=== PATIENT | male | born 1965 | race Caucasian/White ===

== ENCOUNTER 2021-10-18 07:01 | Outpatient (CLI) | payer SELFPAY ==
--- NOTE | 2021-10-18 07:14 | CT_ITS ---
HISTORY: LEFT FLANK PAIN X 4 WEEKS TECHNIQUE: Helically acquired images were obtained of the abdomen and pelvis following the intravenous administration of 100mL Isovue-370 Iodinated contrast. Redicat Oral contrast was administered. Coronal and sagittal reformats obtained. A radiation dose optimization technique was used for this scan. COMPARISON: None FINDINGS: # of images incl. paperwork: [id number] LUNG BASES: Unremarkable. LIVER T BILIARY TRACT: Unremarkable gallbladder. No acute hepatic finding. ADRENAL GLANDS: Unremarkable. SPLEEN: Unremarkable. PANCREAS: Unremarkable. KIDNEYS/URETERS/BLADDER: No hydronephrosis or perinephric inflammation. Unremarkable ureters and bladder. LYMPH NODES: No suspicious adenopathy. STOMACH, SMALL AND LARGE BOWEL: Minimal hiatal hernia. No acute gastric finding. No small bowel obstruction or gross wall thickening. Normal appendix. No acute colonic finding. ASCITES/FREE AIR: No free fluid or free air. AORTA: Unremarkable. PELVIS: Unremarkable. MUSCULOSKELETAL: No acute osseous finding. Left inguinal fat-containing hernia without inflammation. L5-S1 disc height loss with small ex vacuo air-containing posterior protrusion of the curvature of the lower lumbar spine. Right pelvic bone island. CT/Abdomen/Pelvis WITH Contrast IMPRESSION: No specific finding to explain flank pain. Moderate to large colonic stool burden. Small hiatal hernia. Individualized dose optimization techniques were used for this CT. at 0750 Reported and signed by: Anaotly Jain MD Electronically Signed: Anatoly Jain MD at 7:48 EST Tel , Service support ,
== END 2021-10-18 23:59 | disposition short-term general hospital (02) ==
LOC: CT 07:11
PROVIDERS: PCP Family Medicine; Referring Provider Internal Medicine; Visit Provider Internal Medicine
DX: R10.32 Left lower quadrant pain (principal)
CPT/HCPCS: 74177; Q9967